=== PATIENT | female | born 1980 | race African-American/Black ===

== ENCOUNTER 2017-09-30 17:11 | Emergency (ER) | payer BC ==
[~2017-09-30] VITALS: Ht 162.6 cm; Wt 63.0 kg
[2017-09-30] MEDS ORDERED: ACETAMINOPHEN 325MG TABLET PO ONE (22:15)
[2017-09-30 23:00] VITALS: BP 120/81
== END 2017-09-30 23:05 | disposition home or self-care (01) ==
LOC: ER 18:45
DX: O9A.211 Injury, poisoning and certain other consequences of external causes complicating pregnancy, first trimester (principal); S09.8XXA Other specified injuries of head, initial encounter; W01.0XXA Fall on same level from slipping, tripping and stumbling without subsequent striking against object, initial encounter; Y93.89 Activity, other specified; Y99.8 Other external cause status; Y92.89 Other specified places as the place of occurrence of the external cause; Z3A.13 13 weeks gestation of pregnancy
CPT/HCPCS: 81025; 99283